=== PATIENT | male | born 1975 | race Caucasian/White ===

== ENCOUNTER 2025-03-08 07:45 | Outpatient (CLI) | payer MEDICAID, SELFPAY ==
--- NOTE | 2025-03-08 07:55 | USCV_ITS ---
Pardeep Storey Age: 50 Gender: M : 1975 Exam Date: 03/08/2025 08:11 Ordering Phys: Coleman Spivey DO Technologist: PD Exam Location: [facility] – [place] Indication: atresia HISTORY: Diameter (cm) AP x Transverse x Length Velocity (cm/s) Waveform Prox Aorta: 2.40 x 2.50 x 79.80 Mid Aorta: 2.00 x 2.30 x 78.20 Distal Aorta: 2.00 x 2.50 x 51.50 Right Iliac Prox: 1.07 x 1.22 x 71.30 Left Iliac Prox: 1.44 x 1.29 x 78.90 Stent Prox Landing x x Aneurysmal Sac Max x x Lt Lat Sac Dim Rt Lat Sac Dim Stent Dist Landing x x Right Iliac Stent x x Left Iliac Stent x x Right Renal Art Left Renal Art FINDINGS: CONCLUSIONS No evidence of abdominal aortic or bilateral iliac aneurysm. Mild aortic atheromatous disease Lorenzo Castillo MD (Electronically Signed) Final Date: 09 March 2025 08:52 S
== END 2025-03-08 07:46 | disposition home or self-care (01) ==
PROVIDERS: PCP Family Medicine; Visit Provider Family Medicine
DX: Q25.29 Other atresia of aorta (principal); I70.0 Atherosclerosis of aorta
CPT/HCPCS: 93978

== ENCOUNTER 2025-03-15 10:27 | Outpatient (CLI) | payer MEDICAID, SELFPAY ==
--- NOTE | 2025-03-15 10:42 | MR_ITS ---
WS: [id number] MRI LUMBAR SPINE NONCONTRAST TECHNIQUE: Sagittal T1, T2 and STIR imaging. Axial T1 and T2 imaging. CLINICAL INFORMATION: low back pain COMPARISON: None. FINDINGS: Counting performed from the craniocervical junction. 7 cervical 12 thoracic and 4 lumbar vertebral bodies. First sacral segment considered L5 for the purposes of this dictation. Recommend plain film correlation prior to surgical intervention. T12-L1: Mild annular bulging. Narrowing of the LEFT subarticular recess. Mild facet arthropathy. Foramen are patent. L1-L2: Mild annular bulging. Small annular fissure. Narrowing of the LEFT subarticular recess. Mild facet arthropathy. Foramen are patent. L2-L3: Mild annular bulging. Small annular fissure. Narrowing of the LEFT subarticular recess. Moderate facet arthropathy. Mild LEFT foraminal narrowing. L3-L4: Mild annular bulging with mild central canal stenosis. Mild central canal stenosis. Impingement of the subarticular recess. Mild RIGHT foraminal narrowing. Moderate facet arthropathy. L4-L5: Annular bulging with a shallow central protrusion. Impingement RIGHT L5 nerve root. Moderate facet arthropathy. Mild to moderate RIGHT foraminal narrowing. LEFT foramen is patent. L5-S1: First segment considered L5 for the purposes of this dictation. Spinal canal and foramina are patent. Visualized pelvic bony structures: Normal. Paravertebral soft tissues: Normal. MR/MR lumbar spine wo con* [id number] IMPRESSION: 1. Counting performed from the craniocervical junction. 7 cervical 12 thoraci c and 4 lumbar vertebral bodies. First sacral segment considered L5 for the pur poses of this dictation. Recommend plain film correlation prior to surgical int ervention. 2. Mild central canal stenosis L3-4 with impingement RIGHT subarticular recess . Mild RIGHT L3-4 foraminal narrowing. 3. Disc bulging L4-5 impinges the RIGHT subarticular recess and traversing RIG HT L5 nerve root. Recommend correlation RIGHT L5 nerve root symptoms. Mild to m oderate RIGHT L4-5 foraminal narrowing. 4. Small annular fissures L1-2 and L2-3. 5. Moderate facet arthropathy L3-L4 L4-L5. 6. First sacral segment considered L5.
== END 2025-03-15 10:28 | disposition home or self-care (01) ==
LOC: RAD 10:29
PROVIDERS: PCP Family Medicine; Visit Provider Family Medicine
DX: M47.816 Spondylosis without myelopathy or radiculopathy, lumbar region (principal); M47.814 Spondylosis without myelopathy or radiculopathy, thoracic region; M51.34 Other intervertebral disc degeneration, thoracic region; M51.360 Other intervertebral disc degeneration, lumbar region with discogenic back pain only; Q05.7 Lumbar spina bifida without hydrocephalus; M48.061 Spinal stenosis, lumbar region without neurogenic claudication
CPT/HCPCS: 72148